=== PATIENT | female | born 1995 | race Caucasian/White ===

== ENCOUNTER 2019-02-21 01:25 | Emergency (ER) | payer MEDICAID ==
[~2019-02-21] VITALS: Ht 154.9 cm; Wt 45.5 kg
--- NOTE | 2019-02-21 02:27 | NUR ---
PT REFUSED TO PROVIDE UA STATES "I JUST GAVE [employer]CY SOME." WILL CONTINUE TO MONITOR AND ATTEMPT UA
[2019-02-21] MEDS ORDERED: ondansetron 4mg rapidly disintigrating tab PO STA (02:28)
--- NOTE | 2019-02-21 02:35 | NUR ---
PT PROVIDED UA, WHEN CAME BACK TO ROOM, WOULD NOT ALLOW ME TO HOOK HER BACK UP TO [facility] SIGN MONITOR TO OBTAIN VITALS. SHE WAS RUMMAGING THROUGH HER BACKPACK AND STATED "I NEED TO FIND MY CLOTHES FIRST. ITS MORE IMPORTANT." WILL CONTINUE TO ATTEMPT TO OBTAIN VS AND MONITOR.
[2019-02-21 03:05] LABS: URINE AMPHETAMINE SCREEN NEGATIVE (Neg); URINE BARBITUATE SCREEN NEGATIVE (Neg); URINE BENZODIAZEPINES SCREEN NEGATIVE (Neg); URINE CANNABINOID SCREEN POSITIVE (Neg); URINE COCAINE SCREEN NEGATIVE (Neg); URINE METHADONE SCREEN POSITIVE (Neg); URINE OPIATE SCREEN NEGATIVE (Neg); URINE PHENCYCLIDINE SCREEN NEGATIVE (Neg)
[2019-02-21 03:09] LABS: ALANINE AMINOTRANSFERASE 50 U/L (12-78); ALBUMIN 2.4 G/DL (3.4-5.0); ALBUMIN/GLOBULIN RATIO 0.5 (1.1-1.5); ALKALINE PHOSPHATASE 123 IU/L (46-116); ANION GAP 8 (8-16); ASPARTATE AMINO TRANSFERASE 22 U/L (10-37); BILIRUBIN,TOTAL 0.3 MG/DL (0.1-1.0); BLOOD UREA NITROGEN 14 MG/DL (7-18); BUN/CREATININE RATIO 20.9 (6.6-38.0); C-REACTIVE PROTEIN 1.37 MG/DL (0.0-0.5); CALCIUM 8.6 MG/DL (8.5-10.1); CHLORIDE 105 MMOL/L (99-107); CREATININE 0.67 MG/DL (0.40-0.90); GLUCOSE 73 MG/DL (70-104); POTASSIUM 3.8 MMOL/L (3.5-5.1); SODIUM 139 MMOL/L (135-145); TOTAL CARBON DIOXIDE 25.9 MMOL/L (24-32); TOTAL PROTEIN 6.8 G/DL (6.4-8.2); eGFR > 90 ML/MIN
[2019-02-21 03:16] LABS: BASOPHILS # (AUTO) 0.1 X10'3 (0-0.2); BASOPHILS % (AUTO) 0.6 % (0-1); EOSINOPHILS % (AUTO) 7.1 % (0-6); HEMATOCRIT 27.8 % (35.0-45.0); HEMOGLOBIN 9.4 g/dl (12.0-16.0); LYMPHOCYTES # (AUTO) 2.4 X10'3 (1.1-4.8); LYMPHOCYTES % (AUTO) 16.3 % (21-51); MEAN CORPUSCULAR HEMOGLOBIN 32.5 PG (27.0-31.0); MEAN CORPUSCULAR HGB CONC 33.7 g/dL (33.0-36.5); MEAN CORPUSCULAR VOLUME 96.4 FL (78-98); MONOCYTES # (AUTO) 1.2 X10'3 (0-0.9); NEUTROPHILS # (AUTO) 9.9 X10'3 (1.8-7.7); PLATELET COUNT 369 X10'3 (140-440); RED BLOOD COUNT 2.88 X10'6 (4.20-5.60); RED CELL DISTRIBUTION WIDTH 16.4 % (11.5-14.5); WHITE BLOOD COUNT 14.6 X10'3 (4.5-11.0)
--- NOTE | 2019-02-21 03:46 | NUR ---
PT SLEEPING COMFORTABLY IN BED WITH "." WILL CONTINUE TO MONITOR.
[2019-02-21 07:28] VITALS: BP 100/45
--- NOTE | 2019-02-21 07:38 | NUR ---
SECOND CALL TO [facility], STILL NOT AT LEVELS FOR TRANSPORT
== END 2019-02-21 08:49 | disposition short-term general hospital (02) ==
LOC: ER 01:27
DX: O99.412 Diseases of the circulatory system complicating pregnancy, second trimester (principal); I38 Endocarditis, valve unspecified; O99.322 Drug use complicating pregnancy, second trimester; O99.332 Smoking (tobacco) complicating pregnancy, second trimester; F12.90 Cannabis use, unspecified, uncomplicated; F15.90 Other stimulant use, unspecified, uncomplicated; F11.90 Opioid use, unspecified, uncomplicated; Z86.19 Personal history of other infectious and parasitic diseases; Z88.1 Allergy status to other antibiotic agents
CPT/HCPCS: 36415; 80053; 80305; 83605; 84145; 85025; 85651; 86140; 87040; 99291; J2405